=== PATIENT | female | born 1995 ===

== ENCOUNTER 2024-06-27 22:34 | Observation (INO) | payer SELFPAY ==
[~2024-06-27] VITALS: Ht 167.6 cm; Wt 67.9 kg
[2024-06-28 00:34] LABS: BASOPHILS ABSOLUTE AUTO 0.04 K/mm3 (0.00-0.23); BASOPHILS PERCENT AUTO 0 % (0-2); EOSINOPHILS ABSOLUTE AUTO 0.07 K/mm3 (0.00-0.68); EOSINOPHILS PERCENT AUTO 1 % (0-6); Hematocrit 38.5 % (33.0-51.0); IMMATURE GRAN ABSOLUTE AUTO 0.05 K/mm3 (0.00-0.10); IMMATURE GRAN PERCENT AUTO 0 % (0-1); LYMPHOCYTES ABSOLUTE AUTO 2.39 K/mm3 (0.84-5.20); LYMPHOCYTES PERCENT AUTO 16 % (21-46); MONOCYTES ABSOLUTE AUTO 0.81 K/mm3 (0.16-1.47); MONOCYTES PERCENT AUTO 5 % (4-13); Mean Corpuscular HGB 28.6 pg (26.0-34.0); Mean Corpuscular HGB Conc 33.8 g/dL (31.5-36.5); Mean Corpuscular Volume 85 fL (80-100); Mean Platelet Volume 10.5 fL (9.1-12.4); NEUTROPHILS PERCENT AUTO 78 % (41-73); Platelet Count 252 K/mm3 (150-400); RDW Coefficient Variation 12.5 % (11.7-14.2); RDW Standard Deviation 38.4 fL (35.1-46.3); Red Blood Cell Count 4.55 M/mm3 (3.80-5.20); White Blood Cell Count 15.46 K/mm3 (4.00-11.30)
[2024-06-28 00:59] LABS: Alanine Aminotransfer (ALT/SGP 30 U/L (12-78); Albumin, Blood 4.1 g/dL (3.4-5.0); Albumin/Globulin Ratio 1.1 (0.8-1.8); Alk Phos 101 U/L (50-136); Anion Gap 8 mmol/L (3-11); Aspartate Aminotrans (AST/SGOT 33 U/L (12-37); Bilirubin, Total 0.3 mg/dL (0.1-1.0); Blood Urea Nitrogen 15 mg/dL (8-24); Bun/Creatinine Ratio 20.4 (12.0-20.0); CO2, Blood 27 mmol/L (21-32); Calcium, Blood 9.3 mg/dL (8.5-10.1); Chloride, Blood 106 mmol/L (98-108); Creatinine, Blood 0.73 mg/dL (0.40-1.00); Ethanol (Alcohol), Blood, Med <3 mg/dL; Globulin, Blood 3.8 g/dL (2.2-4.0); Glomerular Filtration Rate 115 (60-); Glucose, Blood 141 mg/dL (70-99); Potassium, Blood 3.2 mmol/L (3.5-5.5); Salicylate <1.7 mg/dL (2.8-20.0); Sodium, Blood 138 mmol/L (136-145); Total Protein, Blood 7.9 g/dL (6.4-8.2)
[2024-06-28 01:04] LABS: Acetaminophen, Random <2.0 ug/mL (10.0-30.0)
[2024-06-28 01:57] LABS: U Amphetamine Screen Not Detected; U Barbituate Screen Not Detected; U Benzodiazapine Screen Not Detected; U Buprenorphine Screen Not Detected; U Cannabinoids Screen Not Detected; U Cocaine Screen Not Detected; U Methadone Screen Not Detected; U Methamphetamine Screen Not Detected; U Opiates Screen Not Detected; U Oxycodone Screen Not Detected; U Phencyclidine Screen Not Detected
[2024-06-28 05:24] LABS: Albumin, Blood 3.5 g/dL (3.4-5.0); Albumin/Globulin Ratio 1.1 (0.8-1.8); Bilirubin, Total 0.5 mg/dL (0.1-1.0); Bun/Creatinine Ratio 22.6 (12.0-20.0); Calcium, Blood 8.5 mg/dL (8.5-10.1); Creatinine, Blood 0.53 mg/dL (0.40-1.00); Globulin, Blood 3.3 g/dL (2.2-4.0); Magnesium, Blood 2.2 mg/dL (1.6-2.4); Total Protein, Blood 6.8 g/dL (6.4-8.2)
[2024-06-28 06:52] LABS: BASOPHILS ABSOLUTE AUTO 0.03 K/mm3 (0.00-0.23); BASOPHILS PERCENT AUTO 0 % (0-2); EOSINOPHILS ABSOLUTE AUTO 0.01 K/mm3 (0.00-0.68); EOSINOPHILS PERCENT AUTO 0 % (0-6); Hematocrit 36.8 % (33.0-51.0); Hemoglobin 12.2 g/dL (11.5-16.0); IMMATURE GRAN ABSOLUTE AUTO 0.06 K/mm3 (0.00-0.10); IMMATURE GRAN PERCENT AUTO 0 % (0-1); LYMPHOCYTES ABSOLUTE AUTO 2.45 K/mm3 (0.84-5.20); LYMPHOCYTES PERCENT AUTO 14 % (21-46); MONOCYTES ABSOLUTE AUTO 0.54 K/mm3 (0.16-1.47); MONOCYTES PERCENT AUTO 3 % (4-13); Mean Corpuscular HGB 28.4 pg (26.0-34.0); Mean Corpuscular HGB Conc 33.2 g/dL (31.5-36.5); Mean Corpuscular Volume 86 fL (80-100); Mean Platelet Volume 10.4 fL (9.1-12.4); NEUTROPHILS ABSOLUTE AUTO 14.07 K/mm3 (1.96-9.15); NEUTROPHILS PERCENT AUTO 82 % (41-73); Platelet Count 267 K/mm3 (150-400); RDW Coefficient Variation 12.7 % (11.7-14.2); RDW Standard Deviation 39.8 fL (35.1-46.3); Red Blood Cell Count 4.29 M/mm3 (3.80-5.20); White Blood Cell Count 17.16 K/mm3 (4.00-11.30)
[2024-06-28 10:24] VITALS: BP 116/81
[2024-06-28] MEDS ORDERED: Ondansetron 4 MG TAB PO PRN (10:40)
--- NOTE | 2024-06-28 10:53 | NUR ---
ADMIT PT ARRIVED TO FLOOR COOPERATIVE BUT WITHDRAWN DURING CARE. ABLE TO FOLLOW DIRECTION APPROPRIATELY TO SOME DEGREE. IN THE POSITION QUIETLY. RETAIL CLIENT MANAGER ATTEMPTING TO PLACE TELE. THIS RN PERFORMED INITIAL ASSESSMENT AND DOCUMENTED TO THE BEST THE ABILITY.
[2024-06-28 15:52] VITALS: BP 131/94
--- NOTE | 2024-06-28 16:27 | NUR ---
SHIFT SUMMARY UNABLE TO ASSESS ORIENTATION DUE TO NO PARTICIPATION, SHE IS COOPERATIVE WITH BODY MECHANICS, DOES TURN BODY AND LIFT HIPS WHEN ASKED TO DO SO. PT HAS NOT CALLED FOR ANY HELP THIS SHIFT. DID GET NOTIFICATION FROM TELE THAT PT HEART RATE JUMPED INTO 130-160 BPM, WHEN THIS RN ASSESSED PT, PT REPORTED TO HAVE XL BOWEL MOVEMENT WITH FECAL MATTER ON HER FINGERS. BED IN LOWEST POSITION, CALL LIGHT WITHIN REACH.
--- NOTE | 2024-06-28 18:28 | NUR ---
EDIT PT LEFT AMA. RIPPED IV OUT, BLOOD ON FLOOR. THIS RN WAS TAKING REPORT WHEN EVENT TOOK PLACE. YOGI KIM RECEIVED AMA SIGNATURE FROM PT. TELE NOTIFIED OF LEAVING.
[2024-06-28] MEDS ORDERED: Docusate Sodium 100 MG Cap PO SCH (21:00)
[2024-06-29] MEDS ORDERED: Enoxaparin 40 MG/0.4 ML SYR SC SCH (09:00)
== END 2024-06-28 18:17 | disposition left against medical advice (07) ==
LOC: EDBD 22:34 → ER 22:34 → ERHOLD 22:35 → MEDS 06-28 10:15
PROVIDERS: Student in an Organized Health Care Education/Training Program; ADMIT Student in an Organized Health Care Education/Training Program
DX: T40.412A Poisoning by fentanyl or fentanyl analogs, intentional self-harm, initial encounter (principal); E87.6 Hypokalemia
CPT/HCPCS: 51701; 80053; 80320; 83735; 84703; 85025; 93005; 93010; 99285-25; G0378; G0480